=== PATIENT | female | born 1995 | race Caucasian/White ===

== ENCOUNTER 2016-12-23 04:22 | Emergency (ER) | payer OTHER ==
--- NOTE | 2016-12-23 04:41 | Emergency Department Record ---
History of Present Illness - General Chief complaint: Flank Pain Stated complaint: FLANK PAIN Time Seen by Provider: 12/23/16 04:40 Source: Patient Mode of Arrival: Ambulatory Limitations: No limitations - History of Present Illness Initial comments: pt has r flank pain that feels like her previous kidney stone. she has had kidney stones multiple times including when she was previously . she was transferred to [facility] previously. dr arango and darlene are her urologists MD Complaint: Other Onset/Timin -: Hour(s) Location: RLQ Radiation: R flank, RLQ Severity: Severe Quality: Sharp Consistency: Constant Improves with: None Worsens with: None Patient : Yes Associated Symptoms: Abdominal pain, Nausea/vomiting - Related Data Sexually active: Yes : 3 Para: 1 A: 1 Home Medications Medication Instructions Recorded Confirmed Last Taken Butalbit/Acetamin/Caff/Codeine 1 cap PO ONCE PRN 12/23/16 12/23/16 12/22/16 [[id number]-Codein] Promethazine HCl [Phenergan] 12.5 mg PO Q8H 12/23/16 12/23/16 12/22/16 Allergies Allergy/AdvReac Type Severity Reaction Status Date / Time No Known Allergies Allergy HYPERSENSIT Verified 11/07/15 01:41 IVITY Travel Screening - Travel/Exposure Within Last 30 Days Have you traveled within the last 30 days?: No Review of Systems Reviewed: No additional complaints except as noted below Constitutional: Reports: As per HPI. Denies: Chills, Fever, Malaise, Night sweats, Weakness, Weight change Eyes: Reports: As per HPI. Denies: Eye discharge, Eye pain, Photophobia, Vision change ENT: Reports: As per HPI. Denies: Congestion, Dental pain, Ear pain, Epistaxis , Hearing loss, Throat pain Respiratory: Reports: As per HPI. Denies: Cough, Dyspnea, Hemoptysis, Stridor, Wheezes Cardiovascular: Reports: As per HPI. Denies: Arrhythmia, Chest pain, Dyspnea on exertion, Edema, Murmurs, Orthopnea, Palpitations, Paroxysmal nocturnal dyspnea, Rheumatic Fever, Syncope Endocrine: Reports: As per HPI. Denies: Fatigue, Heat or cold intolerance, Polydipsia, Polyuria Gastrointestinal: Reports: As per HPI. Denies: Abdominal pain, Constipation, Diarrhea, Hematemesis, Hematochezia, Melena, Nausea, Vomiting Genitourinary: Reports: As per HPI. Denies: Abnormal menses, Discharge, Dyspareunia, Dysuria, Frequency, Hematuria, Incontinence, Retention, Urgency Musculoskeletal: Reports: As per HPI. Denies: Arthralgia, Back pain, Gout, Joint swelling, Myalgia, Neck pain Skin: Reports: As per HPI. Denies: Bruising, Change in color, Change in hair/ nails, Lesions, Pruritus, Rash Neurological: Reports: As per HPI. Denies: Abnormal gait, Confusion, Headache, Numbness, Paresthesias, Seizure, Tingling, Tremors, Vertigo, Weakness Psychiatric: Reports: As per HPI. Denies: Anxiety, Auditory hallucinations, Depression, Homicidal thoughts, Suicidal thoughts, Visual hallucinations Hematological/Lymphatic: Reports: As per HPI. Denies: Anemia, Blood Clots, Easy bleeding, Easy bruising, Swollen glands Past Medical History - SOCIAL HISTORY Smoking Status: Never smoker Alcohol Use: None Drug Use: None - [employer] History : 3 Para: 1 A: 1 - RESPIRATORY Hx Respiratory Disorders: No - CARDIOVASCULAR Hx Cardio Disorders: No - NEURO Hx Neuro Disorders: No - GI Hx GI Disorders: Yes Hx Abdominal Pain: Yes Hx Rectal Bleeding: Yes (positive hemocult x 1) - Hx Genitourinary Disorders: Yes Hx Kidney Stones: Yes Hx UTI: Yes - ENDOCRINE Hx Endocrine Disorders: No - MUSCULOSKELETAL Hx Musculoskeletal Disorders: No - PSYCH Hx Psych Problems: Yes Hx Anxiety: Yes Hx Depression: Yes - HEMATOLOGY/ONCOLOGY Hx Hematology/Oncology Disorders: Yes Hx Unexplained Bleeding: Yes Family Medical History Any Significant Family History?: Yes Family Hx Comment (NOT TO BE USED IN PLACE OF ITEMS BELOW): Mom-ovarian cysts Hx Depression: Mother Hx Kidney Disease: Mother Physical Exam - General General Appearance: Alert, Oriented x3, Cooperative, Moderate distress - Head Head exam: Normal inspection - Eye Eye exam: Normal appearance, PERRL, EOMI Pupils: Normal accommodation - ENT ENT exam: Normal exam, Mucous membranes moist, Normal external ear exam, Normal orophraynx Ear exam: Normal external inspection. negative: External canal tenderness Nasal Exam: Normal inspection. negative: Discharge, Sinus tenderness Mouth exam: Normal external inspection, Tongue normal Teeth exam: Normal inspection. negative: Dental caries Throat exam: Normal inspection. negative: Tonsillar erythema, Tonsillar exudate - Neck Neck exam: Normal inspection, Full ROM. negative: Tenderness - Respiratory Respiratory exam: Normal lung sounds bilaterally. negative: Respiratory distress - Cardiovascular Cardiovascular Exam: Regular rate, Normal rhythm, Normal heart sounds - GI/Abdominal GI/Abdominal exam: Soft, Normal bowel sounds, Tenderness - Rectal Rectal exam: Deferred - exam: Deferred - Extremities Extremities exam: Normal inspection, Full ROM, Normal capillary refill. negative: Tenderness - Back Back exam: Reports: Normal inspection, Full ROM. Denies: Muscle spasm, Rash noted, Tenderness - Neurological Neurological exam: Alert, CN II-XII intact, Normal gait, Oriented X3 - Psychiatric Psychiatric exam: Normal affect, Normal mood - Skin Skin exam: Dry, Intact, Normal color, Warm Course Vital Signs 12/23/16 04:26 Temperature 97.4 F L Pulse Rate [ 85 Pulse Ox Probe] Respiratory 20 Rate Blood Pressure 138/95 [Left Arm] Pulse Ox 97 Medical Decision Making - Lab Data Result diagrams: 12/23/16 04:50 12/23/16 04:50 Disposition Disposition: Transfer Clinical Impression: Renal colic on right side, and not yet delivered in first trimester Vomiting Qualifiers: Vomiting type: unspecified Vomiting Intractability: non-intractable Nausea presence: with nausea Qualified Code(s): R11.2 - Nausea with vomiting, unspecified Disposition: Acute Care Hospital Transfer Transfer To: [facility] Reason For Transfer: w renal lithiasis Accepting Physician: dr richardson Time Discussed w/Accepting Physician: 05:15 Forms: Patient Portal Access Quality - Quality Measures Quality Measures: N/A - Blood Pressure Screening Does Patient Have Any of the Following: No Blood Pressure Classification: Hypertensive Reading Systolic Measurement: 138 Diastolic Measurement: 95 Screening for High Blood Pressure: < Pre-Hypertensive BP, F/U Documented > [ G8950] Pre-Hypertensive Follow-up Interventions: Follow-up with rescreen every year.
[2016-12-23 04:44] LABS: URINE APPEARANCE CLEAR; URINE BILIRUBIN NEGATIVE (NEGATIVE); URINE BLOOD SMALL (NEGATIVE); URINE COLOR YELLOW; URINE GLUCOSE (UA) NEGATIVE (NEGATIVE); URINE KETONE NEGATIVE (NEGATIVE); URINE LEUKOCYTE ESTERASE SMALL (NEGATIVE); URINE NITRITE NEGATIVE (NEGATIVE); URINE PROTEIN NEGATIVE (NEGATIVE); URINE UROBILINOGEN 0.2 E.U./dL (0.20 - 1.00)
[2016-12-23] MEDS ORDERED: HYDROMORPHONE HCL 1MG/ML **SYRINGE IVP ONE (04:48)
[2016-12-23] MEDS ORDERED: ONDANSETRON HCL IV 4 MG/2 ML VIAL IVP ONE (04:48)
[2016-12-23 04:53] LABS: URINE RBC 0 - 2 (NONE SEEN)
[2016-12-23 04:56] LABS: BASO % 0.3 % (0-6); EOS % 4.6 % (0-6); GRAN % 53.4 % (47-80); HEMATOCRIT 38.3 % (35.0-47.0); MEAN CELL VOLUME 85.5 fl (81-97); MEAN CORPUSCULAR HGB CONC 33.9 g/dl (32-36); MEAN PLATELET VOLUME 9.9 fl (7.4-10.4); MONO % 7.7 % (0-9); PLATELET COUNT 250 K/uL (130-400); RED BLOOD COUNT 4.48 M/uL (3.80-5.40); RED CELL DISTRIBUTION WIDTH 13.1 % (11.5-14.5); WHITE BLOOD COUNT W/O DIFF 6.3 K/uL (4.2-12.2)
[2016-12-23] MEDS ORDERED: DIPHENHYDRAMINE HCL IV 50 MG/ML VIAL IVP ONE (04:57)
[2016-12-23 05:09] LABS: BLOOD UREA NITROGEN 12 mg/dL (6-20); CREATININE 0.4 mg/dL (0.5-0.9); EST GLOMERULAR FILTRATION RATE > 60 mL/min; GLUCOSE,RANDOM 109 mg/dL (74-109)
[2016-12-23] MEDS ORDERED: CEPHALEXIN 500 MG CAPSULE PO STA (05:16)
[2016-12-23] MEDS ORDERED: ACETAMINOPHEN 1,000 MG/100 ML BTL IVPB ONE (05:22)
[2016-12-23] MEDS ORDERED: MORPHINE SULFATE 5 MG/ML PFS IVP ONE (06:36)
== END 2016-12-23 06:42 | disposition short-term general hospital (02) ==
LOC: ER 04:22
DX: O26.831 Pregnancy related renal disease, first trimester (principal); N20.0 Calculus of kidney; R11.2 Nausea with vomiting, unspecified; Z87.442 Personal history of urinary calculi
CPT/HCPCS: 99285 ×2; 96374; 96375; 85025; 80048; 81001; J2405; J2270; J1170; J1200

== ENCOUNTER 2017-02-17 19:39 | Emergency (ER) | payer OTHER ==
[2017-02-17 20:00] LABS: URINE APPEARANCE CLEAR; URINE BILIRUBIN NEGATIVE (NEGATIVE); URINE BLOOD NEGATIVE (NEGATIVE); URINE COLOR YELLOW; URINE GLUCOSE (UA) NEGATIVE (NEGATIVE); URINE KETONE NEGATIVE (NEGATIVE); URINE LEUKOCYTE ESTERASE NEGATIVE (NEGATIVE); URINE NITRITE NEGATIVE (NEGATIVE); URINE PROTEIN NEGATIVE (NEGATIVE)
[2017-02-17 20:01] LABS: HCG,QUALITATIVE URINE POSITIVE (NEGATIVE)
[2017-02-17 20:06] LABS: BASO % 0.2 % (0-6); EOS % 3.8 % (0-6); HEMOGLOBIN 12.6 gm/dl (11.6-16.0); LYMPH % 41.5 % (16-45); MEAN CELL VOLUME 84.1 fl (81-97); MEAN CORPUSCULAR HEMOGLOBIN 28.6 pg (27-33); MEAN CORPUSCULAR HGB CONC 34.1 g/dl (32-36); MEAN PLATELET VOLUME 9.7 fl (7.4-10.4); MONO % 7.5 % (0-9); PLATELET COUNT 231 K/uL (130-400); WHITE BLOOD COUNT W/O DIFF 5.2 K/uL (4.2-12.2)
--- NOTE | 2017-02-17 20:12 | Emergency Department Record ---
History of Present Illness - General Chief complaint: Flank Pain Stated complaint: KIDNEY PAIN, THINK SHE IS PASSING A STONE Time Seen by Provider: 02/17/17 20:07 Source: Patient - History of Present Illness Initial comments: The patient has known kidney stones in both kidneys and a history of the same in the past. She is also 16 weeks . She was recently admitted to [facility] emergency department for this and placed on tylenol #3 for the pain. She was controlled with this until she began vomiting up all her meds, all her food and water and now thinks she is dehydrated. She states she felt the baby move earlier today, but now it is obscured by her bilateral flank pain which is not controlled. She was just discharged two days ago from [facility] for this. She was given a urologist whose name she can't remember. She has see Dr. Ryan (sp?) urology in the past. - Related Data Allergies Allergy/AdvReac Type Severity Reaction Status Date / Time No Known Allergies Allergy Unverified 02/14/17 11:21 Review of Systems Reviewed: No additional complaints except as noted below Constitutional: Reports: As per HPI. Denies: Chills, Fever, Malaise, Night sweats, Weakness, Weight change Eyes: Reports: As per HPI. Denies: Eye discharge, Eye pain, Photophobia, Vision change ENT: Reports: As per HPI. Denies: Congestion, Dental pain, Ear pain, Epistaxis , Hearing loss, Throat pain Respiratory: Reports: As per HPI. Denies: Cough, Dyspnea, Hemoptysis, Stridor, Wheezes Cardiovascular: Reports: As per HPI. Denies: Arrhythmia, Chest pain, Dyspnea on exertion, Edema, Murmurs, Orthopnea, Palpitations, Paroxysmal nocturnal dyspnea, Rheumatic Fever, Syncope Endocrine: Reports: As per HPI. Denies: Fatigue, Heat or cold intolerance, Polydipsia, Polyuria Gastrointestinal: Reports: As per HPI. Denies: Abdominal pain, Constipation, Diarrhea, Hematemesis, Hematochezia, Melena, Nausea, Vomiting Genitourinary: Reports: As per HPI. Denies: Abnormal menses, Discharge, Dyspareunia, Dysuria, Frequency, Hematuria, Incontinence, Retention, Urgency Musculoskeletal: Reports: As per HPI. Denies: Arthralgia, Back pain, Gout, Joint swelling, Myalgia, Neck pain Skin: Reports: As per HPI. Denies: Bruising, Change in color, Change in hair/ nails, Lesions, Pruritus, Rash Neurological: Reports: As per HPI. Denies: Abnormal gait, Confusion, Headache, Numbness, Paresthesias, Seizure, Tingling, Tremors, Vertigo, Weakness Psychiatric: Reports: As per HPI. Denies: Anxiety, Auditory hallucinations, Depression, Homicidal thoughts, Suicidal thoughts, Visual hallucinations Hematological/Lymphatic: Reports: As per HPI. Denies: Anemia, Blood Clots, Easy bleeding, Easy bruising, Swollen glands Past Medical History - SOCIAL HISTORY Smoking Status: Never smoker Drug Use: None - RESPIRATORY Hx Respiratory Disorders: No - CARDIOVASCULAR Hx Cardio Disorders: No - NEURO Hx Neuro Disorders: No - GI Hx GI Disorders: Yes Hx Abdominal Pain: Yes Hx Rectal Bleeding: Yes (positive hemocult x 1) - Hx Genitourinary Disorders: Yes Hx Kidney Stones: Yes Hx UTI: Yes - ENDOCRINE Hx Endocrine Disorders: No - MUSCULOSKELETAL Hx Musculoskeletal Disorders: No - PSYCH Hx Psych Problems: Yes Hx Anxiety: Yes Hx Depression: Yes - HEMATOLOGY/ONCOLOGY Hx Hematology/Oncology Disorders: Yes Hx Unexplained Bleeding: Yes Family Medical History Family Hx Comment (NOT TO BE USED IN PLACE OF ITEMS BELOW): Mom-ovarian cysts Hx Depression: Mother Hx Kidney Disease: Mother Physical Exam - General General Appearance: Alert, Oriented x3, Cooperative, Severe distress (rocking on her hands and knees on her cart able to give complete thorough history) - Head Head exam: Normal inspection - Eye Eye exam: Normal appearance, PERRL Pupils: Normal accommodation - ENT ENT exam: Normal exam, Mucous membranes dry, Normal external ear exam, Normal orophraynx, TM's normal bilaterally Ear exam: Normal external inspection. negative: External canal tenderness Nasal Exam: Normal inspection. negative: Discharge, Sinus tenderness Mouth exam: Normal external inspection, Tongue normal Teeth exam: Normal inspection. negative: Dental caries Throat exam: Normal inspection. negative: Tonsillar erythema, Tonsillar exudate - Neck Neck exam: Normal inspection, Full ROM. negative: Tenderness - Respiratory Respiratory exam: Normal lung sounds bilaterally. negative: Respiratory distress - Cardiovascular Cardiovascular Exam: Regular rate, Normal rhythm, Normal heart sounds - GI/Abdominal GI/Abdominal exam: Soft, Normal bowel sounds. negative: Tenderness - Rectal Rectal exam: Deferred - exam: Deferred - Extremities Extremities exam: Normal inspection, Full ROM, Normal capillary refill. negative: Calf tenderness, Pedal edema, Tenderness - Back Back exam: Reports: Normal inspection, CVA tenderness (R), CVA tenderness (L), Full ROM. Denies: Muscle spasm, Rash noted, Tenderness - Neurological Neurological exam: Alert, Normal gait, Oriented X3, Reflexes normal - Psychiatric Psychiatric exam: Normal affect, Normal mood - Skin Skin exam: Dry, Intact, Normal color, Warm Course - Reevaluation(s) Reevaluation #1: 02/17/17 20:43 Feeling better with IV meds and fluids. Reevaluation #2: The patient was feeling much better after initial medications, then worsened and developed RLQ pain. That pain has now become bilateral lower quadrant pain with flank pain about 7/10. Her nausea is resolved. she states her appendix has been removed. 02/17/17 22:05 02/17/17 22:21 Reevaluation #3: Patient is agreeable to be transferred back to [facility] where she was being treated for this two days ago. 02/17/17 22:22 02/17/17 22:22 Reevaluation #4: [place] [facility] Attending who accepts patient in transfer Edept to Edept. 02/17/17 22:35 Medical Decision Making - Management Options MDM Management: Additional Work-up Planned (e.g. ADM/Transfer/OP Study) ( transfer to [facility] for ultrasound and urology (as needed)) - Data Complexity MDM Data: Labs Ordered and/or Reviewed - Lab Data Result diagrams: 02/17/17 20:00 02/17/17 20:00 Lab Results 02/17/17 02/17/17 Range/Units 20:00 20:01 WBC 5.2 (4.2-12.2) K/uL RBC 4.40 (3.80-5.40) M/uL Hgb 12.6 (11.6-16.0) gm/dl Hct 37.0 (35.0-47.0) % MCV 84.1 (81-97) fl MCH 28.6 (27-33) pg MCHC 34.1 (32-36) g/dl RDW 13.0 (11.5-14.5) % Plt Count 231 (130-400) K/uL MPV 9.7 (7.4-10.4) fl Gran % 47.0 (47-80) % Lymphocytes % 41.5 (16-45) % Monocytes % 7.5 (0-9) % Eosinophils % 3.8 (0-6) % Basophils % 0.2 (0-6) % Urine Color Yellow Urine Appearance Clear Urine pH 7.0 (5.0-8.0) Ur Specific [place] 1.020 (1.002-1.030) Urine Protein Negative (NEGATIVE) Urine Glucose (UA) Negative (NEGATIVE) Urine Ketones Negative (NEGATIVE) Urine Blood Negative (NEGATIVE) Urine Nitrite Negative (NEGATIVE) Urine Bilirubin Negative (NEGATIVE) Urine Urobilinogen 1.0 (0.20 - 1.00) E.U./dL Ur Leukocyte Esterase Negative (NEGATIVE) Urine HCG, Qual Positive H (NEGATIVE) Disposition Disposition: Transfer Clinical Impression: 16 weeks gestation of , Kidney stones, Bilateral flank pain Disposition: Acute Care Hospital Transfer Transfer To: [facility] Emergency Department Reason For Transfer: ultrasound in woman Accepting Physician: Dr. Resendiz Time Discussed w/Accepting Physician: 22:37 Condition: (2) Stable Quality - Quality Measures Quality Measures: N/A - Blood Pressure Screening Does Patient Have Any of the Following: No Blood Pressure Classification: Normal BP Reading Systolic Measurement: 115 Diastolic Measurement: 79 Screening for High Blood Pressure: < Normal BP, F/U Not Required > [G8783]
[2017-02-17 20:19] LABS: BLOOD UREA NITROGEN 8 mg/dL (6-20); CREATININE 0.4 mg/dL (0.5-0.9); EST GLOMERULAR FILTRATION RATE > 60 mL/min; GLUCOSE,RANDOM 86 mg/dL (74-109)
[2017-02-17] MEDS ORDERED: HYDROMORPHONE HCL 1 MG/ML SYRINGE IVP ONE (20:31)
[2017-02-17] MEDS ORDERED: ACETAMINOPHEN 1,000 MG/100 ML BTL IVPB ONE (20:41)
[2017-02-17] MEDS ORDERED: DIPHENHYDRAMINE HCL IV 50 MG/ML VIAL IVP ONE (20:42)
[2017-02-17] MEDS ORDERED: ONDANSETRON HCL IV 4 MG/2 ML VIAL IVP ONE (20:42)
[2017-02-17] MEDS ORDERED: 0.9 % SODIUM CHLORIDE 1,000 ML BAG IV ONE (22:18)
[2017-02-17] MEDS ORDERED: ACETAMINOPHEN WITH CODEINE 5 ML SOLUTION PO ONE (22:31)
== END 2017-02-17 23:10 | disposition short-term general hospital (02) ==
LOC: ER 19:39
DX: O26.832 Pregnancy related renal disease, second trimester (principal); N20.0 Calculus of kidney; R10.31 Right lower quadrant pain; R10.32 Left lower quadrant pain; Z87.442 Personal history of urinary calculi; Z3A.16 16 weeks gestation of pregnancy
CPT/HCPCS: 99285 ×2; 96374; 96375; 85025; 80048; 81003; 81025; J2405; J1170; J1200

== ENCOUNTER 2018-12-28 07:34 | Emergency (ER) | payer BC, OTHER ==
[2018-12-28] MEDS ORDERED: 0.9 % SODIUM CHLORIDE 1,000 ML BAG IV ONE (07:46)
[2018-12-28] MEDS ORDERED: ONDANSETRON HCL IV 4 MG/2 ML VIAL IVP ONE ×2 (07:46→09:37)
--- NOTE | 2018-12-28 07:46 | Emergency Department Record ---
History of Present Illness - General Chief Complaint: Abdominal Pain Stated Complaint: ABD PAIN Time Seen by Provider: 12/28/18 07:39 Source: Patient, Family Mode of Arrival: Ambulatory Limitations: No limitations - History of Present Illness Initial Comments: 23 yo female presents with mid upper abdominal pain since 2pm yesterday. The pain is sharp and comes in waves. The pain is above the umbilicus and goes equally across the upper abdomen. She has vomited twice. No blood in the vomit. No diarrhea. No fevers. She reports many years of recurrent abdominal pain. The pain has has been more frequent the last 8 months. She reports she has had extensive work ups with GI, endoscopy, CT scans, Ultrasounds. No specific diagnosis has been made to date. She denies and abdominal surgery. MD Complaint: Abdominal pain -: Year(s) Location: Epigastric Radiation: Epigastric Migration to: Epigastric Severity: Severe Quality: Aching, Sharp, Stabbing Consistency: Intermittent Improves With: Nothing Worsens With: Nothing Context: Other Associated Symptoms: Anorexia - Related Data Home Medications Medication Instructions Recorded Confirmed Last Taken Ibuprofen 200 mg Tablet [Motrin 600 mg PO Q8H PRN 12/28/18 12/28/18 Unknown 200Mg] Ondansetron [Zofran Odt] 4 mg PO Q8H 12/28/18 12/28/18 Unknown Previous Rx's Medication Instructions Recorded Ondansetron [Zofran Odt] 4 mg PO Q8H #15 tab.rapdis 12/28/18 Allergies Allergy/AdvReac Type Severity Reaction Status Date / Time No Known Allergies Allergy no Unverified 12/28/18 07:46 allergies Review of Systems Constitutional: Denies: Chills, Fever, Malaise, Weakness Eyes: Denies: Eye discharge ENT: Denies: Congestion, Throat pain Respiratory: Denies: Cough, Dyspnea Cardiovascular: Denies: Chest pain, Palpitations, Syncope Endocrine: Denies: Fatigue Gastrointestinal: Reports: Abdominal pain, Nausea, Vomiting (twice in the last 24 hours). Denies: Diarrhea Genitourinary: Denies: Dysuria, Urgency Musculoskeletal: Denies: Arthralgia, Back pain, Joint swelling, Myalgia Skin: Denies: Bruising, Change in color, Rash Neurological: Denies: Headache Psychiatric: Denies: Anxiety Hematological/Lymphatic: Denies: Easy bleeding, Easy bruising Past Medical History - SOCIAL HISTORY Smoking Status: Never smoker Drug Use: None - RESPIRATORY Hx Respiratory Disorders: No - CARDIOVASCULAR Hx Cardio Disorders: No - NEURO Hx Neuro Disorders: No - GI Hx GI Disorders: Yes Hx Abdominal Pain: Yes Hx Rectal Bleeding: Yes (positive hemocult x 1) - Hx Genitourinary Disorders: Yes Hx Kidney Stones: Yes Hx UTI: Yes - ENDOCRINE Hx Endocrine Disorders: No - MUSCULOSKELETAL Hx Musculoskeletal Disorders: No - PSYCH Hx Psych Problems: Yes Hx Anxiety: Yes Hx Depression: Yes - HEMATOLOGY/ONCOLOGY Hx Hematology/Oncology Disorders: Yes Hx Unexplained Bleeding: Yes Family Medical History Family Hx Comment (NOT TO BE USED IN PLACE OF ITEMS BELOW): Mom-ovarian cysts Hx Depression: Mother Hx Kidney Disease: Mother Physical Exam - General General Appearance: Alert, Oriented x3, Cooperative, No acute distress Limitations: No limitations - Head Head exam: Atraumatic, Normal inspection - Eye Eye exam: Normal appearance. negative: Conjunctival injection, Scleral icterus - ENT ENT exam: Normal exam, Mucous membranes moist Ear exam: Normal external inspection Nasal Exam: Normal inspection Mouth exam: Normal external inspection - Neck Neck exam: Normal inspection - Respiratory Respiratory exam: Normal lung sounds bilaterally. negative: Respiratory distress - Cardiovascular Cardiovascular Exam: Regular rate, Normal rhythm, Normal heart sounds - GI/Abdominal GI/Abdominal exam: Soft, Tenderness (Very soft abdomen but tender to palpation epigastric, RUQ, LUQ). negative: Distended, Guarding, Rebound, Rigid - Rectal Rectal exam: Deferred - exam: Deferred - Extremities Extremities exam: Normal inspection - Back Back exam: Denies: CVA tenderness (R), CVA tenderness (L) - Neurological Neurological exam: Alert, Oriented X3 - Psychiatric Psychiatric exam: Normal affect, Normal mood - Skin Skin exam: Dry, Intact, Normal color, Warm Course - Reevaluation(s) Reevaluation #1: 12/28/18 07:53 EMR: 11/12/15 CT AP: 3mm obstructing calculus L UVJ 11/11/14 EGD/Colonoscopy: Gastritis, Grade [address] AP 08/10/18: L intrarenal stone US of the Abdomen 08/16/18 : 3mm mobile gallstone CT AP 09/25/18: L intrarenal stone EGD/Colonoscopy 11/04/18: Colitis CT Enterography 11/12/18: No acute process 12/28/18 08:46 The labs were reviewed No acute abnormality of the CBC, CMP, Lipase, UA, HCG is negative 12/28/18 08:56 Given her pain location with normal labs an US was ordered. No indication for CT 12/28/18 10:00 We discussed the results of the tests and questions were answered at the time of discharge. The patient is doing well and is comfortable with DC. DC vitals were reviewed. We discussed at length reasons to immediately return to the ED as well as close follow up. She was referred to Dr Gutierrez regarding the pain and gall stone The patient will call the PCP for close follow up of this ED visit to review this visit and the tests performed Medical Decision Making - Lab Data Result diagrams: 12/28/18 07:50 12/28/18 07:50 Disposition Disposition: Discharge Clinical Impression: Abdominal pain, Gall stone Disposition: Home, Self-Care Condition: (2) Stable Instructions: Abdominal Pain (ED) Additional Instructions: Review this ER visit and the tests performed with your family doctor Call your doctor for the next available follow up appointment Return to the ER for a recheck if worse, any new concerns or questions Take the prescriptions provided as directed Prescriptions: Ondansetron [Zofran Odt] 4 mg PO Q8H #15 tab.rapdis Referrals: Jese Gutierrez [DOCTOR OF OSTEOPATH] - [facility] [Provider Group] Forms: Patient Portal Access Quality - Quality Measures Quality Measures: N/A - Blood Pressure Screening Does Patient Have Any of the Following: No Blood Pressure Classification: Pre-Hypertensive BP Reading Systolic Measurement: 129 Diastolic Measurement: 85 Screening for High Blood Pressure: < Pre-Hypertensive BP, F/U Documented > [G8950] Pre-Hypertensive Follow-up Interventions: Referral to alternative/primary care provider.
[2018-12-28] MEDS ORDERED: ACETAMINOPHEN 1,000 MG/100 ML BTL IVPB ONE (07:51)
[2018-12-28] MEDS ORDERED: KETOROLAC 30 MG/ML VIAL IVP ONE (07:51)
[2018-12-28 08:01] LABS: URINE APPEARANCE CLEAR; URINE BILIRUBIN NEGATIVE (NEGATIVE); URINE BLOOD NEGATIVE (NEGATIVE); URINE COLOR YELLOW; URINE GLUCOSE (UA) NEGATIVE (NEGATIVE); URINE KETONE NEGATIVE (NEGATIVE); URINE LEUKOCYTE ESTERASE NEGATIVE (NEGATIVE); URINE NITRITE NEGATIVE (NEGATIVE); URINE PROTEIN NEGATIVE (NEGATIVE); URINE UROBILINOGEN 0.2 E.U./dL (0.20 - 1.00)
[2018-12-28 08:02] LABS: ABSOLUTE NEUTROPHIL COUNT 5.43; BASO % 0.3 % (0-6); EOS % 2.9 % (0-6); GRAN % 71.3 % (47-80); HEMATOCRIT 43.3 % (35.0-47.0); HEMOGLOBIN 14.1 gm/dl (11.6-16.0); LYMPH % 19.6 % (16-45); MEAN CELL VOLUME 84.1 fl (81-97); MEAN CORPUSCULAR HEMOGLOBIN 27.4 pg (27-33); MEAN CORPUSCULAR HGB CONC 32.6 g/dl (32-36); MONO % 5.9 % (0-9); PLATELET COUNT 248 K/uL (130-400); RED BLOOD COUNT 5.15 M/uL (3.80-5.40); RED CELL DISTRIBUTION WIDTH 13.7 % (11.5-14.5); WHITE BLOOD COUNT W/O DIFF 7.6 K/uL (4.2-12.2)
[2018-12-28 08:05] LABS: HCG,QUALITATIVE URINE NEGATIVE (NEGATIVE)
[2018-12-28 08:10] LABS: BLOOD UREA NITROGEN 12 mg/dL (6-20); CREATININE 0.6 mg/dL (0.5-0.9); EST GLOMERULAR FILTRATION RATE > 60 mL/min
[2018-12-28 08:11] LABS: LIPASE 21 U/L (13-60); TOTAL PROTEIN 7.9 g/dL (6.6-8.7)
[2018-12-28 08:13] LABS: GLUCOSE,RANDOM 99 mg/dL (74-109)
[2018-12-28 08:15] LABS: ALT/SGPT 18 U/L (<33); AST/SGOT 22 U/L (10.0-35.0)
[2018-12-28 08:16] LABS: ALB/GLOB RATIO 1.5 (1.1-1.8); ALBUMIN 4.8 g/dL (4.0-5.0); ALKALINE PHOSPHATASE 76 U/L (35-104)
[2018-12-28] MEDS ORDERED: MORPHINE SULFATE 5 MG/ML VIAL IVP ONE (09:26)
--- NOTE | 2018-12-28 09:51 | ULTRASOUND REPORT ---
EXAMINATION: Complete Abdomen Ultrasound EXAM DATE: 12/28/2018 9:30 AM TECHNIQUE: Complete ultrasound of the abdomen was performed. INDICATION: upper abdominal pain. Reported history of gallstone and urinary tract stone. COMPARISON: CT abdomen and pelvis noncontrast 11/07/2015. FINDINGS: Liver: The liver is normal size and echogenicity. There is normal-appearing flow within the portal v ein. Gallbladder: There is cholelithiasis with at least a single 6 mm mobile gallstone. There is no gallb ladder wall thickening/pericholecystic fluid and negative Chávez sign. Common Bile Duct: The common duct measures 1 mm. There is no intrahepatic or extrahepatic bile duct dilatation. Pancreas: The pancreas as visualized appears normal. Spleen: The spleen size and echogenicity is normal. Kidneys: There is no hydronephrosis. The size and echogenicity of the kidneys is normal. Abdominal Aorta: There is no abdominal aortic aneurysm. Inferior Vena Cava: The intrahepatic IVC is normal. Other Findings: No ascites. IMPRESSION: Cholelithiasis without biliary dilatation. Additional comments as above. Dictated by: Alexx Lo MD on 12/28/2018 9:43 AM. .
== END 2018-12-28 10:09 | disposition home or self-care (01) ==
LOC: ER 07:34
DX: K80.80 Other cholelithiasis without obstruction (principal)
CPT/HCPCS: 76700; 80053; 81003; 81025; 83690; 85025; 96365; 96375; 96376; 99284; J1885; J2405; J7030

== ENCOUNTER 2019-01-11 09:38 | Day surgery (SDC) | payer BC ==
[~2019-01-11 09:38] MED LIST: ACETAMINOPHEN 1,000 MG/100 ML BTL IVPB ONE; FAMOTIDINE 20MG TABLET PO ONE; MECLIZINE 25 MG TABLET PO ONE; METOCLOPRAMIDE 10 MG TABLET PO ONE; SCOPOLAMINE 1 PATCH TDSY TD ONE
[2019-01-11] MEDS ORDERED: RINGERS SOLUTION,LACTATED 1,000 ML IV ONE (10:00)
[2019-01-11] MEDS ORDERED: BUPIVACAINE 0.25% W/EPI MPF 30ML VIAL SQ ONE ×2 (11:05)
[2019-01-11] MEDS ORDERED: HYDROMORPHONE HCL 2 MG/ML VIAL IVP ONE (11:47)
--- NOTE | 2019-01-12 06:01 | Operative Note ---
DATE OF SURGERY: 01/11/2019 SURGEON: Jese Gutierrez DO PREOPERATIVE DIAGNOSIS: Chronic cholecystitis. POSTOPERATIVE DIAGNOSIS: Chronic cholecystitis. OPERATION: Laparoscopic cholecystectomy. INDICATION: The patient is a 23-year-old female who presented to the clinic with some epigastric and right upper quadrant pain. Imaging studies did reveal chronic cholecystitis. She had some reflux issues, and I felt her pain was truly multifactorial. We did discuss cholecystectomy versus medical management. She desired surgical intervention. Risks include but are not limited to bleeding, infection, ductal injury, possible conversion to open, postoperative bile leak. She understood this fully. PROCEDURE: Thereafter, consent was signed and questions answered. She was taken to the operating room and placed in a supine position. General anesthesia was administered per the department of anesthesia. The patient's abdomen was prepped and draped in the usual sterile fashion. Adequate timeout was performed. She did receive preoperative DVT prophylaxis and tor. The infraumbilical region was anesthetized with a total of 5 mL of 0.25% Sensorcaine with epinephrine. A 2 cm infraumbilical incision was made. This was carried down to the anterior rectus fascia. This was incised. Lakshmi clamps were placed on the fascial edges and brought up into the wound. Stay sutures of 0 Vicryl were placed. Posterior rectus sheath was identified and incised. The peritoneal cavity was entered bluntly. At this time, a 10 mm blunt Mino port was placed. Adequate pneumoperitoneum was established. Under direct visualization, additional 5 mm epigastric and two 5 mm right subcostal ports were placed. The patient was rotated into steep reverse Trendelenburg with rotation to left. The gallbladder was identified. It was retracted in a cephalad and lateral direction opening up the angle of Cal[place]. The hepatocystic triangle was thoroughly dissected out. There was no aberrant anatomy, no posterior ductal structures. The distal half of the gallbladder was released from the liver plate elongating our retroductal window. The cystic duct and cystic artery were clearly identified. Each one was doubly clipped and cut in a standard fashion. Gallbladder was then taken off the liver bed with EVELIO Harmonic. This was then extracted in the umbilical port. Right upper quadrant was rechecked and found to be hemostatic. No bleeding. No bile leaking. No bowel injury noted. The patient was leveled out. The pneumoperitoneum was released. All ports were removed. The fascia was closed with 0 Vicryl in a [id number] fashion. The skin at all ports was closed with 4-0 Vicryl. The patient was taken to the recovery room in stable condition. FINDINGS AT THE TIME OF SURGERY: Chronic cholecystitis. MTDD
== END 2019-01-11 12:46 | disposition home or self-care (01) ==
LOC: SUR 09:38
PROVIDERS: ATTEND Surgery
DX: Z01.89 Encounter for other specified special examinations (principal)
CPT/HCPCS: 81025; J7120

== ENCOUNTER 2019-01-11 17:59 | Observation (INO) | payer BC ==
[2019-01-11] MEDS ORDERED: ONDANSETRON HCL IV 4 MG/2 ML VIAL IVP ONE (18:06)
--- NOTE | 2019-01-11 18:13 | Emergency Department Record ---
History of Present Illness - General Chief complaint: Vomiting Stated complaint: VOMITING,CANT EAT Time Seen by Provider: 01/11/19 18:00 Source: Patient Mode of Arrival: Wheelchair Limitations: No limitations - History of Present Illness Initial comments: 23 yo female presents to ED for evaluation of post-operative abdominal pain and vomiting symptoms following cholecystectomy this morning. Patient reports that she attempted to eat some soup without success, as a result, has not taken anything for pain as she was told not to take [place] on an empty stomach. Patient did call the on-call provider who requested the patient come to the ED for evaluation and IVFs, analgesia. Patient did take Zofran at home that did not significantly improve her symptoms. MD complaint: Abdominal pain, Nausea, Vomiting -: Hour(s) Associated Abdominal Pain: Yes Location: Diffuse Radiation: None Severity: Moderate Quality: Aching Consistency: Constant Improves with: None Worsens with: Vomiting Context: History of abdominal surgery Associated Symptoms: Denies other symptoms - Related Data Previous Rx's Medication Instructions Recorded Ondansetron [Zofran Odt] 4 mg PO Q8H #15 tab.rapdis 12/28/18 Allergies Allergy/AdvReac Type Severity Reaction Status Date / Time ketorolac [From Toradol] AdvReac MIGRAINES Verified 01/11/19 18:08 Review of Systems Constitutional: Denies: Chills, Fever, Malaise, Night sweats Eyes: Denies: Eye discharge, Eye pain ENT: Denies: Congestion, Ear pain, Epistaxis Respiratory: Denies: Cough, Dyspnea Cardiovascular: Denies: Chest pain, Dyspnea on exertion Endocrine: Denies: Fatigue, Heat or cold intolerance Gastrointestinal: Reports: Abdominal pain, Nausea, Vomiting. Denies: Constipation Genitourinary: Denies: Incontinence, Retention Musculoskeletal: Denies: Arthralgia, Back pain Skin: Denies: Bruising, Change in color Neurological: Denies: Abnormal gait, Confusion, Headache, Tingling, Tremors Psychiatric: Denies: Anxiety Hematological/Lymphatic: Denies: Anemia, Blood Clots Past Medical History - SOCIAL HISTORY Smoking Status: Never smoker Drug Use: None - RESPIRATORY Hx Respiratory Disorders: Yes Comment:: CHRONIC SINUS DRAINAGE - CARDIOVASCULAR Hx Cardio Disorders: No - NEURO Hx Neuro Disorders: Yes Hx Dizziness: Yes Hx Headaches: Yes (OCCASSIONALLY TENSION H/A'S) Hx of Migraines: Yes (HX OF RARE NOW) - GI Hx GI Disorders: Yes Hx Abdominal Pain: Yes Hx Reflux: Yes Hx Irritable Bowel: Yes Hx Nausea/Vomiting: Yes (WITH "GALLBLADDER ATTACKS") Hx Rectal Bleeding: Yes (positive hemocult x 1 HAD C SCOPE->INFLAMMATION) Hx Wt Loss/Wt Gain: Yes (84 LBS LOSS SINCE ) - Hx Genitourinary Disorders: Yes Hx Kidney Stones: Yes (HX) Hx UTI: Yes (HX OF) - ENDOCRINE Hx Endocrine Disorders: No - MUSCULOSKELETAL Hx Musculoskeletal Disorders: Yes Hx Fibromyalgia: Yes - PSYCH Hx Psych Problems: Yes Hx Anxiety: Yes Hx Depression: Yes Comment:: OCD PTSD. ON NO MEDS AT THIS TIME WORKING THROUGHT THESE ISSUES WITHOUT MED - HEMATOLOGY/ONCOLOGY Hx Hematology/Oncology Disorders: No Family Medical History Family Hx Comment (NOT TO BE USED IN PLACE OF ITEMS BELOW): Mom-ovarian cysts Hx Depression: Mother Hx Kidney Disease: Mother Physical Exam - General General Appearance: Alert, Oriented x3, Cooperative, Moderate distress Limitations: No limitations - Head Head exam: Atraumatic, Normocephalic, Normal inspection Head exam detail: negative: Abrasion, Contusion, Gonzalez's sign, General tenderness, Hematoma, Laceration - Eye Eye exam: Normal appearance. negative: Conjunctival injection, Periorbital swelling, Periorbital tenderness, Scleral icterus - ENT Ear exam: negative: Auricular hematoma, Auricular trauma Nasal Exam: negative: Active bleeding, Discharge, Dried blood, Foreign body, Sinus tenderness Mouth exam: negative: Drooling, Laceration, Muffled voice, Tongue elevation - Neck Neck exam: Normal inspection. negative: Meningismus, Tenderness - Respiratory Respiratory exam: Normal lung sounds bilaterally. negative: Respiratory distress, Rhonchi, Stridor, Wheezes - Cardiovascular Cardiovascular Exam: Regular rate, Normal rhythm, Normal heart sounds - GI/Abdominal GI/Abdominal exam: Soft, Tenderness (Diffuse TTP on examination, no rebound, guarding is present.). negative: Rebound, Rigid - Rectal Rectal exam: Deferred - exam: Deferred - Extremities Extremities exam: Normal inspection. negative: Pedal edema, Tenderness - Back Back exam: Denies: CVA tenderness (R), CVA tenderness (L) - Neurological Neurological exam: Alert, Normal gait, Oriented X3 - Psychiatric Psychiatric exam: Normal affect, Normal mood - Skin Skin exam: Normal color. negative: Abrasion Type of lesion: negative: abrasion Course - Reevaluation(s) Reevaluation #1: 01/11/19 19:11 Laboratory studies were reviewed and appear grossly unremarkable for an acute process. Reevaluation #2: 01/11/19 19:36 Patient was reassessed at this time, reports significantly improvement in her symptoms. 2nd Liter NS ordered to infuse, patient would like some ice chips as well, will trial PO at this time. Reevaluation #3: 01/11/19 20:39 Patient was re-evaluated, reports that her pain symptoms are beginning to gradually return. Patient and her mother were updated on all results as well. Case was discussed with Dr. Gutierrez, will admit for observation and pain control with planned re-evaluation in the AM. Patient and her mother are in agreement with the plan for observation admission as discussed. Medical Decision Making - Lab Data Result diagrams: 01/11/19 18:17 01/11/19 18:17 Disposition Disposition: Admit Clinical Impression: Postoperative abdominal pain Nausea & vomiting Qualifiers: Vomiting type: unspecified Vomiting Intractability: non-intractable Qualified Code(s): R11.2 - Nausea with vomiting, unspecified Disposition: Still a Patient at [facility] Decision to Admit: Admit from ER Decision to Admit Date: 01/11/19 Decision to Admit Time: 20:40 Condition: (2) Stable Instructions: Acute Nausea and Vomiting (ED) Forms: Patient Portal Access Time of Disposition: 20:40 Quality - Quality Measures Quality Measures: N/A - Blood Pressure Screening Does Patient Have Any of the Following: No Blood Pressure Classification: Pre-Hypertensive BP Reading Systolic Measurement: 122 Diastolic Measurement: 70 Screening for High Blood Pressure: < Pre-Hypertensive BP, F/U Documented > [G8950] Pre-Hypertensive Follow-up Interventions: Referral to alternative/primary care provider.
[2019-01-11] MEDS ORDERED: 0.9 % SODIUM CHLORIDE 1000ML 1,000 ML IV SCH (18:15)
[2019-01-11] MEDS: MORPHINE SULFATE 5 MG/ML VIAL IVP ONE ×2 (18:25→21:11)
[2019-01-11 18:27] LABS: ABSOLUTE NEUTROPHIL COUNT 6.05; BASO % 0.1 % (0-6); EOS % 0.1 % (0-6); HEMATOCRIT 42.1 % (35.0-47.0); HEMOGLOBIN 13.9 gm/dl (11.6-16.0); LYMPH % 11.7 % (16-45); MEAN CELL VOLUME 82.5 fl (81-97); MEAN CORPUSCULAR HEMOGLOBIN 27.3 pg (27-33); MEAN PLATELET VOLUME 9.9 fl (7.4-10.4); MONO % 1.3 % (0-9); PLATELET COUNT 236 K/uL (130-400); RED CELL DISTRIBUTION WIDTH 13.7 % (11.5-14.5)
[2019-01-11] MEDS ORDERED: ACETAMINOPHEN 1,000 MG/100 ML BTL IVPB ONE (18:37)
[2019-01-11 18:39] LABS: BLOOD UREA NITROGEN 7 mg/dL (6-20); CREATININE 0.5 mg/dL (0.5-0.9); EST GLOMERULAR FILTRATION RATE > 60 mL/min
[2019-01-11 18:40] LABS: TOTAL PROTEIN 7.7 g/dL (6.6-8.7)
[2019-01-11 18:42] LABS: GLUCOSE,RANDOM 134 mg/dL (74-109)
[2019-01-11 18:44] LABS: ALB/GLOB RATIO 1.4 (1.1-1.8); ALBUMIN 4.5 g/dL (4.0-5.0); ALT/SGPT 46 U/L (<33); AST/SGOT 38 U/L (10.0-35.0)
[2019-01-11 18:45] LABS: ALKALINE PHOSPHATASE 120 U/L (35-104)
[2019-01-11] MEDS: 0.9 % SODIUM CHLORIDE 1000ML 1,000 ML IV SCH (20:13)
[2019-01-11] MEDS ORDERED: MORPHINE SULFATE 5 MG/ML VIAL IVP PRN (21:27)
[2019-01-11] MEDS ORDERED: ONDANSETRON HCL IV 4 MG/2 ML VIAL IVP PRN (21:27)
[2019-01-11] MEDS ORDERED: 0.9 % SODIUM CHLORIDE 1000ML 1,000 ML IV ONE (21:27)
[2019-01-11] MEDS: ACETAMINOPHEN 1,000 MG/100 ML BTL IVPB SCH (21:33)
[2019-01-11] MEDS: HYDROMORPHONE HCL 2 MG/ML VIAL IVP PRN (22:44)
[2019-01-12] MEDS: HYDROMORPHONE HCL 2 MG/ML VIAL IVP PRN ×2 (03:39→07:30)
[2019-01-12] MEDS: ACETAMINOPHEN 1,000 MG/100 ML BTL IVPB SCH ×2 (03:43→10:31)
[2019-01-12] MEDS ORDERED: DIPHENHYDRAMINE HCL 50 MG/ML VIAL IVP PRN (07:35)
[2019-01-12] MEDS: 0.9 % SODIUM CHLORIDE 1000ML 1,000 ML IV SCH (08:28)
[2019-01-12] MEDS ORDERED: HYDROCODONE/APAP 7.5/325MG TABLET PO PRN (11:28)
[2019-01-12] MEDS ORDERED: MIDAZOLAM HCL 2MG/2ML VIAL IV ONE (12:39)
[2019-01-12] MEDS ORDERED: SUGAMMADEX SODIUM 200 MG/2 ML VIAL IV ONE (12:39)
[2019-01-12] MEDS ORDERED: FENTANYL PF 100MCG/2ML VIAL IV ONE (12:39)
[2019-01-12] MEDS ORDERED: ROCURONIUM BROMIDE 50MG/5ML VIAL IV ONE (12:39)
[2019-01-12] MEDS ORDERED: PROPOFOL 10 MG/ML VIAL IV ONE (12:39)
[2019-01-12] MEDS ORDERED: DEXAMETHASONE 4 MG/ML 1ML VIAL IVP ONE (12:39)
[2019-01-12] MEDS ORDERED: LIDOCAINE 2% MDV (20MG/ML) 20ML VIAL IV ONE (12:39)
[2019-01-12] MEDS ORDERED: ONDANSETRON HCL IV 4 MG/2 ML VIAL IVP ONE (12:39)
--- NOTE | 2019-01-25 15:21 | Physician Courtesy Letter ---
Noa Edwards Dear Dr. Edwards, I saw Ms. Nicholson back in the office on 01/25/2019 in followup from a laparoscopic cholecystectomy done on 01/17/2019. In the interim, she has done well. She has no complaints. On exam, she is healing well without signs of infection. As you know, she did have to stay in a 24-hour OBV status due to postop pain control. She is doing much better now. At this point, she will increase activities to tolerance. She will call with any issues. Thank you for this referral. SRINI
== END 2019-01-12 12:40 | disposition home or self-care (01) ==
LOC: ER 17:59 → MEDSURG 21:28
PROVIDERS: ADMIT Surgery; ATTEND Surgery
DX: K81.1 Chronic cholecystitis (principal); G89.18 Other acute postprocedural pain; M79.7 Fibromyalgia; R63.4 Abnormal weight loss; K21.9 Gastro-esophageal reflux disease without esophagitis; Z90.49 Acquired absence of other specified parts of digestive tract; Z87.442 Personal history of urinary calculi
CPT/HCPCS: 47562; 00790; 80053; 81025; 85027; G0378 ×2; J2405 ×2; J3010; J1170 ×2; J3490; J1200; J7030; J7120